=== PATIENT | male | born 1980 | race Caucasian/White ===

== ENCOUNTER 2020-01-30 21:52 | Emergency (ER) | payer OTHER ==
[~2020-01-30] VITALS: Ht 182.9 cm; Wt 149.7 kg
--- NOTE | 2020-01-30 22:10 | NUR ---
Pt BIB his father walking w/a limp c/o R knee pain x1day.Pt A+O x4, speaks in complete sentences, no signs of neuro deficit noted.Pt able to follow/comprehend directions, reports no chest pain, no cardio distress noted. HR and Rhythm regular. Respirations even and unlabored, w/symmetrical chest rise. Denies any GI/ symptoms. No N/V/D, no abd pain. All monitors applied,side rails upx2, call light w/in reach, fall preacutions implemented.
[2020-01-30] MEDS ORDERED: LORAZEPAM 2 MG/1 ML VIAL IM ONE (23:00)
[2020-01-30] MEDS ORDERED: KETOROLAC TROMETHAMINE 60 MG INJ IM ONE ×2 (23:00→23:08)
[2020-01-30] MEDS ORDERED: LORAZEPAM 2 MG/1 ML VIAL ONE (23:10)
--- NOTE | 2020-01-30 23:45 | NUR ---
DOPPLER TECH IN ROOM.
[2020-01-31 00:13] VITALS: BP 100/67
== END 2020-01-31 00:09 | disposition home or self-care (01) ==
LOC: ER 21:56
DX: M25.561 Pain in right knee (principal); J45.909 Unspecified asthma, uncomplicated; F17.200 Nicotine dependence, unspecified, uncomplicated; Z88.1 Allergy status to other antibiotic agents; Z88.8 Allergy status to other drugs, medicaments and biological substances; Z88.6 Allergy status to analgesic agent
CPT/HCPCS: 73564; 93971; 96372 ×2; 99284; J1885; J2060; A4663